=== PATIENT | female | born 1995 | race Caucasian/White ===

== ENCOUNTER 2024-12-26 19:00 | Inpatient (IN) | payer OTHER | END 2024-12-26 20:48 | disposition home or self-care (01) | DRG 566 | LOC: JLDR 19:00 | PROVIDERS: ADMIT Specialist; ATTEND Specialist | DX: O75.89 Other specified complications of labor and delivery (principal); Z3A.39 39 weeks gestation of pregnancy ==

== ENCOUNTER 2024-12-28 23:00 | Inpatient (IN) | payer OTHER ==
[2024-12-29 00:37] LABS: MCHC 31.9 g/dl (32.2-35.5); MEAN CELL VOLUME 83.9 fl (79.4-94.8); MEAN PLT VOLUME 10.1 fl (9.4-12.3); RDW 15.1 % (12.1-16.5)
[2024-12-29 00:45] VITALS: BMI 33.7
[2024-12-29 00:45] LABS: INR 0.97 (0.83-1.09); PROTHROMBIN TIME (PATIENT) 10.7 SEC (9.7-13.0)
[2024-12-29 00:48] LABS: ACTIVATED PTT 29.5 SECONDS (25.2-36.5)
[2024-12-29 00:54] LABS: GLUCOSE,RANDOM 80.0 mg/dL (74-106); TOT PROT 6.4 g/dl (6.4-8.2)
[2024-12-29 00:55] LABS: CO2 20.0 mmol/L (21-32)
[2024-12-29 00:56] LABS: ALK PHOS 228.0 U/L (40-150)
[2024-12-29 00:59] LABS: CREATININE 0.54 mg/dL (0.55-1.3); SGOT/AST 35.0 U/L (5-34); SGPT/ALT 26.0 U/L (0-55)
[2024-12-29] MEDS: ELECTROLYTE-148 SOLN 500 ML IV ONE (01:00)
[2024-12-29 01:20] LABS: HIV INTERPRETATION NEGATIVE (NEGATIVE)
[2024-12-29] MEDS: ELECTROLYTE-148 SOLN 1,000 ML IV SCH (05:30)
[2024-12-29] MEDS ORDERED: LIDOCAINE HCL 1% PRESERVATIVE FREE - 30ML VIAL ONE (09:48)
[2024-12-29] MEDS ORDERED: OXYTOCIN 20 UNITS in 0.9% NS 20 UNIT/1,000 ML INFUS.BAG IV ONE (09:49)
[2024-12-29] MEDS: OXYTOCIN 20 UNITS in 0.9% NS 20 UNIT/1,000 ML INFUS.BAG IV SCH (10:20)
[2024-12-29] MEDS ORDERED: MISOPROSTOL 200 MCG TABLET ONE (10:23)
[2024-12-29] MEDS: MISOPROSTOL 200 MCG TABLET PR ONE (10:25)
[2024-12-29] MEDS ORDERED: BISACODYL 10 MG SUPP.RECT RC PRN (10:45)
[2024-12-29] MEDS ORDERED: WITCH HAZEL 50% (TUCKS) 40 PAD/JAR PAD TP PRN (10:45)
[2024-12-29] MEDS ORDERED: BENZOCAINE 20% 57 GM BOTTLE TP PRN (10:45)
[2024-12-29] MEDS ORDERED: BENZOCAINE 28 GM HEMORRHOIDAL OINTMENT TP PRN (10:45)
[2024-12-29 11:11] LABS: CORD BASE EXCESS -5.5 mmol/L (0-2); CORD HCO3 20.8 mmHg (20-29); CORD PCO2 43.4 mmHg (30-78); CORD pH 7.299 (7.14-7.44)
[2024-12-29] MEDS ORDERED: ACETAMINOPHEN 325 MG TABLET (FP) ONE (11:54)
[2024-12-29] MEDS: ACETAMINOPHEN 325 MG TABLET (FP) PO PRN (11:58)
[2024-12-29] MEDS: METHYLERGONOVINE MALEATE 0.2 MG/1 ML AMP IM PRN (13:05)
[2024-12-29] MEDS ORDERED: IBUPROFEN 600 MG TABLET (FP) PO ONE (13:08)
[2024-12-29] MEDS: IBUPROFEN 600 MG TABLET (FP) PO PRN (13:10)
[2024-12-29 17:08] VITALS: RESP 18
[2024-12-30 07:32] LABS: ABSOLUTE IMMATURE GRANULOCYTES 0.04 x10^3/uL (0.0-0.031); BASOPHILS # 0.05 x10^3/uL (0.01-0.08); EOSINOPHIL % 1.1 % (0.7-5.8); EOSINOPHILS # 0.09 x10^3/uL (0.04-0.36); MCHC 30.9 g/dl (32.2-35.5); MEAN CELL VOLUME 84.9 fl (79.4-94.8); MEAN PLT VOLUME 9.6 fl (9.4-12.3); MONOCYTE # 0.46 x10^3/uL (0.24-0.86); MONOCYTE % 5.4 % (4.7-12.5); RDW 15.5 % (12.1-16.5)
[2024-12-30] MEDS: PRENATAL VITAMINS W/ FOLIC ACID TABLET (FP) PO SCH (09:50)
[2024-12-30 11:00] VITALS: BP 123/67; PULSE 98; TEMP 97.9
[2024-12-30] MEDS ORDERED: SENNOSIDES/DOCUSATE COMBO (SENNA PLUS) TABLET (UD) PO PRN (22:00)
== END 2024-12-30 12:45 | disposition home or self-care (01) | DRG 560 ==
LOC: JDEL 23:00 → JLDR 23:45 → J3W 12-29 14:15
PROVIDERS: ADMIT Obstetrics & Gynecology; ATTEND Obstetrics & Gynecology
PROC: 10E0XZZ Delivery of Products of Conception, External Approach (ICD-10-PCS; principal; 2024-12-29)
DX: O80 Encounter for full-term uncomplicated delivery (principal); Z3A.39 39 weeks gestation of pregnancy; Z37.0 Single live birth
CPT/HCPCS: 36415; 36600; 59409; 80053; 82803; 85025; 85610; 85730; 86780; 86850; 86900; 86901; 87389